=== PATIENT | male | born 1975 | race African-American/Black ===

== ENCOUNTER 2016-08-06 13:13 | Emergency (ER) | payer MEDICAID ==
[~2016-08-06] VITALS: Ht 175.3 cm; Wt 79.4 kg
[2016-08-06 13:31] VITALS: BP 131/71
[2016-08-06] MEDS ORDERED: DOXY100C2 PO (14:03)
[2016-08-06] MEDS ORDERED: HYDR-971 PO (14:03)
--- NOTE | 2016-08-06 14:03 | PHYS DOC ---
Past Medical History Past Medical History: Other Additional Past Medical Histor: stomach ulcer Past Surgical History: Appendectomy Alcohol Use: None Drug Use: None Adult General Chief Complaint Chief Complaint: INSECT BITE HPI HPI Patient is a 41 year old male presents to the emergency department with a 3 day history of swelling and redness to the wrist ulnar side of the wrist. Patient states he was moving boxes when he believes something might have bit him. He denies drainage or discharge from the site. Denies fever, chills, nausea or vomiting. Patient with full ROM of the wrist and hand. Patient is right hand dominant. Review of Systems Review of Systems Constitutional: Denies fever or chills [] Eyes: Denies change in visual acuity, redness, or eye pain [] HENT: Denies nasal congestion or sore throat [] Respiratory: Denies cough or shortness of breath [] Cardiovascular: No additional information not addressed in HPI [] GI: Denies abdominal pain, nausea, vomiting, bloody stools or diarrhea [] : Denies dysuria or hematuria [] Musculoskeletal: Denies back pain or joint pain [] Integument: Denies rash or skin lesions. Swelling, redness and pain to right wrist. Neurologic: Denies headache, focal weakness or sensory changes [] Endocrine: Denies polyuria or polydipsia [] Allergies Allergies Allergies Coded Allergies Type Severity Reaction Last Updated Verified iodine Allergy Severe 08/06/16 Yes Physical Exam Physical Exam Constitutional: Well developed, well nourished, no acute distress, non-toxic appearance. [] HENT: Normocephalic, atraumatic, bilateral external ears normal, oropharynx moist, no oral exudates, nose normal. [] Eyes: PERRLA, EOMI, conjunctiva normal, no discharge. [] Neck: Normal range of motion, no tenderness, supple, no stridor. [] Cardiovascular:Heart rate regular rhythm Lungs & Thorax: no respiratory distress Skin: Warm, dry, no erythema, no rash. Abscess noted the size of ping pong ball , red warm swollen, tender and hard, no drainage noted. Back: No tenderness Extremities: No tenderness, no cyanosis, no clubbing, ROM intact, no edema. [] Neurologic: Alert and oriented X 3, normal motor function, normal sensory function, no focal deficits noted. [] Psychologic: Affect normal, judgement normal, mood normal. [] Current Patient Data Vital Signs Vital Signs Date Time Temp Pulse Resp B/P (MAP) Pulse Ox O2 Delivery O2 Flow Rate FiO2 08/06/16 13:31 98.3 78 18 97 Room Air 98.3 EKG EKG [] Radiology/Procedures Radiology/Procedures [] Course & Med Decision Making Course & Med Decision Making Pertinent Labs and Imaging studies reviewed. (See chart for details) Patient will be discharged home with recommendations for warm moist packs to the area 4-5 times a day for 20 minutes at a time. Patient will be placed on doxycycline 1 tablet twice a for the next 10 days. Patient's tetanus immunization is up-to-date and was approximately 2 years ago. Patient will be provided with hydrocodone for pain and discomfort he was instructed this medication will cause drowsiness do not take any be alert and oriented. Signs symptoms to return back to emergency department been provided. Patient agrees with discharge instructions treatment regimens and follow-up recommendations. [] Dragon Disclaimer Dragon Disclaimer This electronic medical record was generated, in whole or in part, using a voice recognition dictation system. Departure Departure Impression: Primary Impression: Abscess, wrist Disposition: HOME, SELF-CARE Condition: STABLE Patient Instructions: Abscess, Care After Additional Instructions: Activity as tolerated Medication as prescribed Sobieski for pain this medication will cause drowsiness do not take if you need to be alert and oriented Warm moist packs to the wrist 4-5 times a day for 20 minutes at a time Followup with primary care provider in 3-5 days Return to emergency department as needed for signs and symptoms that become worse. Scripts Hydrocodone/Apap 5-325 (NORCO 5-325 TABLET) 1 Each Tablet 1 TAB PO PRN Q6HRS Y for PAIN, #15 TAB 0 Refills Prov: LYNETTE RENO APRN 08/06/16 Doxycycline Hyclate (DOXYCYCLINE HYCLATE) 100 Mg Capsule 1 CAP PO BID, #20 CAP Prov: LYNETTE RENO APRN 08/06/16 LYNETTE RENO APRN Aug 06, 2016 14:03
== END 2016-08-06 14:05 | disposition home or self-care (01) ==
LOC: ER 13:13
DX: L02.413 Cutaneous abscess of right upper limb (principal); Z91.041 Radiographic dye allergy status
CPT/HCPCS: 99283